=== PATIENT | male | born 1935 | race Caucasian/White ===

== ENCOUNTER 2019-03-16 06:00 | Day surgery (SDC) | payer OTHER ==
[~2019-03-16 06:00] MED LIST: CLONAZEPAM1 MG PO; LEVO-T25 MCG PO; LOSARTAN POTASS25 MG PO; OMEPRAZOLE40 MG PO; TAMS0.4C PO
[2019-03-16] MEDS ORDERED: PERCOCET 5-3251 EACH PO (09:48)
[2019-03-16] MEDS ORDERED: RECTICARE30 GM TOP (09:48)
== END 2019-03-16 16:55 | disposition home or self-care (01) ==
LOC: CIR.AMB 06:00
DX: K64.2 Third degree hemorrhoids (principal); K62.5 Hemorrhage of anus and rectum